=== PATIENT | male | born 1950 | race Caucasian/White ===

== ENCOUNTER → 2017-10-31 | Outpatient (CLI) | payer MEDICARE ==
[2017-10-31 14:53] LABS: Blood Urea Nitrogen 20 mg/dL (9-20)
== END | disposition home or self-care (01) ==
LOC: LABWHC1 14:23
PROVIDERS: ATTEND Physical Medicine & Rehabilitation
DX: Z01.812 Encounter for preprocedural laboratory examination (principal); N28.9 Disorder of kidney and ureter, unspecified; M79.642 Pain in left hand; R20.2 Paresthesia of skin
CPT/HCPCS: 36415; 82565; 84520

== ENCOUNTER → 2018-02-13 | Outpatient (CLI) | payer MEDICARE ==
--- NOTE | 2018-02-13 14:37 | CT ---
EXAMINATION TYPE: CT abdomen w con DATE OF EXAM: 02/13/2018 COMPARISON: NONE HISTORY: Weight loss and abnormal liver function. CT DLP: 840 mGycm Automated exposure control for dose reduction was used. TECHNIQUE: Helical acquisition of images was performed from the lung bases through the top of iliac crest to include entire abdomen. CONTRAST: Performed with Oral Contrast and with IV Contrast, patient injected with 80 mL of Isovue M300. FINDINGS: LUNG BASES: Very minimal bibasilar subsegmental atelectasis is seen at the lung bases. Partial visual ization of coronary artery calcifications are also noted. Additionally there is partial visualization of probable bilateral mild retroareolar gynecomastia. LIVER/GB: Too small to accurately characterize hepatic lesion is seen within segment 7 on series 3 im age 14 measuring 4 mm in addition to a similar 5 mm lesion in segment 8 on image 16. A third 6 mm sim ilar-appearing lesion in image 22 within segment 6. A 4 similar-appearing lesion is seen withinr the mid segment measuring 5 mm on image 28. PANCREAS: No significant abnormality is seen. No ductal dilatation. SPLEEN: No significant abnormality is seen. No splenomegaly. ADRENALS: No nodularity or thickening. KIDNEYS: 4 mm too small to accurately characterize right renal lesion is seen in series 3 image 31 an teriorly from the right midpole 6 mm right upper pole renal cyst and 1.0 cm left upper pole renal cys t are noted. BOWEL: Moderate amount retained colonic stool is noted. Bowel is nondilated. Clustered small bowel l oops are present around the central left paracentral mesentery. These are nonenlarged but demonstrate mild bowel wall thickening and may be related to infectious/inflammatory etiology or degree of nondi stention. LYMPH NODES: No greater than 1 cm short axis lymph node is seen within the abdomen. OSSEOUS STRUCTURES: Multilevel moderate degenerative changes are seen with small compression deformi ties of T12 and T11. These are age indeterminant. Multilevel Schmorl's nodes, vacuum disc phenomenon, facet arthropathy, anterior osteophytes, endplate sclerosis and intervertebral disc space narrowing are present. FREE AIR: No free air is visualized. IMPRESSION: 1. THERE ARE MULTIPLE HYPOATTENUATED HEPATIC LESIONS THAT ARE SUBCENTIMETER AND TOO SMALL TO ACCURATE LY CHARACTERIZE. THESE COULD REPRESENT HEPATIC CYSTS, HOWEVER GIVEN THEIR SMALL SIZE OF OTHER ETIOLOG IES ARE NOT EXCLUDED. ENHANCED MR COULD BE PERFORMED TO EVALUATE DEGREE OF HYPERINTENSITY ON T2-WEIGH VELMA IMAGING AND ENHANCEMENT PATTERN. 2. AGE-INDETERMINATE MILD COMPRESSION DEFORMITIES OF T11 AND T12. CORRELATE WITH POINT TENDERNESS OR ANY PRIOR IMAGING. IF THERE IS FURTHER CLINICAL CONCERN MR COULD BE PERFORMED TO EVALUATE FOR BONE MA RROW EDEMA. 3. MULTIPLE LOOPS OF CLUSTERED SMALL BOWEL WITHIN THE LEFT PARACENTRAL ABDOMEN DEMONSTRATE MILD BOWEL WALL THICKENING. THIS COULD BE RELATED TO DEGREE OF NONDISTENTION, INFECTIOUS, OR INFLAMMATORY IN ET IOLOGY.
== END | disposition home or self-care (01) ==
LOC: RADCTMAIN 12:59
PROVIDERS: ATTEND Family Medicine
DX: K76.89 Other specified diseases of liver (principal); R93.5 Abnormal findings on diagnostic imaging of other abdominal regions, including retroperitoneum; R63.4 Abnormal weight loss
CPT/HCPCS: 74160; Q9967

== ENCOUNTER 2018-04-28 09:41 | Day surgery (SDC) | payer MEDICARE ==
[2018-04-21 14:35] VITALS: BMI 20.7
[~2018-04-28 09:41] MED LIST: LACTATED RINGERS 1,000 ML IV SCH
[2018-04-28 10:36] VITALS: RESP 16; TEMP 97.9
[2018-04-28 11:25] LABS: T4, Free (Free Thyroxine) 0.77 ng/dL (0.78-2.19)
--- NOTE | 2018-04-28 11:45 | P.PCN ---
Date of Procedure: 04/28/18 Anesthesia: other (Local with lidocaine 1% and IV moderate sedation with fentanyl and Versed) Surgeon: Riya Shaffer Pathology: other (6 MLS of CSF) Condition: stable Disposition: PACU Description of Procedure: Procedure=1-lumbar puncture . Preoperative diagnoses= multiple sclerosis. Postoperative diagnosis= multiple sclerosis. Anesthesia= IV sedation with Versed and fentanyl and local lidocaine infiltration 1% 2 mL for skin and subcu infiltration. Condition= stable. Complications=none. Indication for the procedure= patient with a history of symptoms suggestive of multiple sclerosis . The patient was referred to us by his neurologist for diagnostic lumbar puncture to rule out multiple sclerosis. procedure risk and benefits and alternatives discussed with the patient and he was agreeable to proceeding with it. Description of the procedure=the patient was brought into the procedure room and placed in the sitting position , monitors applied, the back prepped with chlorhexidine , skin was localized with 1% lidocaine, then 22-gauge quickie Needle advanced slowly at L4 -5 interlaminar space to get access to the intrathecal space in 2 attempts. Cerebrospinal fluid was clear, and no heme no paresthesia, a total of 6 mL of clear cerebrospinal fluid collected in 4 different tubes, the needle removed, Band-Aid applied , patient tolerated the procedure well without any complications, and further management as per his neurologist.
[2018-04-28] MEDS ORDERED: IV FLUID CONTINUATION 1,000 ML IV ONE (11:51)
[2018-04-28 12:23] VITALS: BP 160/89; PULSE 49
[2018-04-28 13:10] LABS: Glucose,CSF 55 mg/dL (40-70); Total Protein,CSF 130 mg/dL (12-60)
[2018-04-28 13:17] LABS: Appearance,CSF Clear; CSF Tube Number 4; CSF Tube Volume 1.8; Nucleated Cells, CSF 0 u/L (0-5); Red Blood Cell, CSF Crenated 0 %; Red Blood Cell, CSF Fresh 100 %; Red Blood Cell,CSF 29 u/L (0-10)
[2018-04-28 16:50] LABS: DNA Double-Stranded NEGATIVE (NEGATIVE); RNP <0.2 AI
[2018-04-28 17:00] LABS: Rheumatoid Factor <4 IU/mL (0-13)
[2018-04-29 05:20] LABS: Angiotensin-1 Converting Enz. 28 U/L (8-52)
[2018-04-29 10:24] LABS: VDRL, Qualitative CSF Nonreactive (Nonreactive)
[2018-04-29 11:30] LABS: APTT 38 Sec(s) (<43); Dilute Russell Viper Venom 33 Sec(s) (<44)
[2018-04-29 14:04] LABS: IgG - CSF 8.6 mg/dL (0.0 - 3.4); IgG Synthesis Rate 8.58 mg/day (0.00 - 3.00); IgG/Albumin Index (CSF) 0.62 (0.00 - 0.77)
== END 2018-04-28 12:48 | disposition home or self-care (01) ==
LOC: ORPAIN 09:41
PROVIDERS: ATTEND Anesthesiology
DX: G35 Multiple sclerosis (principal); R20.2 Paresthesia of skin; I10 Essential (primary) hypertension; Z79.899 Other long term (current) drug therapy
CPT/HCPCS: 87476; 86592 ×2; 86235 ×3; 84439; 88108; 84157; 82945; 82040; 82042; 82784; 83916; 82164 ×2; 83873; 84443; 84450; 84460; 85730; 86431; 85613; 89050; 86618; 86038; 86225; 62270; J2250; J2001; J3010; 99152

== ENCOUNTER 2023-12-30 07:56 | Inpatient (IN) | payer MEDICARE ==
--- NOTE | 2023-12-30 08:15 | ED ---
General Adult HPI - General Stated complaint: cough Time Seen by Provider: 12/30/23 08:00 Source: patient, RN notes reviewed, old records reviewed - History of Present Illness Initial comments: This is a 73-year-old male who presents to the emergency department stating that he has had a cough for the last couple of days and his has pneumonia so he is worried that he might have pneumonia. Patient states he has no chest pain. Patient denies any abdominal pain. Patient denies any back pain. Patient does not know that he has a fever however he took an oral temp and it was 101.0. Patient denies any headache or numbness or weakness. Patient states he is a little bit lightheaded. Patient states she has had a coarse cough but no sputum production - Related Data Home Medications Medication Instructions Recorded Confirmed Levothyroxine Sodium [Synthroid] 50 mcg PO DAILY 04/21/18 12/30/23 Venlafaxine HCl ER [Effexor Xr] 150 mg PO HS 04/21/18 12/30/23 Capsaicin Cream [Trixaicin Cream] 1 applic TOPICAL DAILY PRN 12/30/23 12/30/23 Escitalopram [Lexapro] 20 mg PO DAILY 12/30/23 12/30/23 LORazepam 0.5 mg PO TID 12/30/23 12/30/23 Lidocaine 4% Cream [Lmx 4] 1 applic TOPICAL DAILY PRN 12/30/23 12/30/23 NIFEdipine XL [Procardia XL] 60 mg PO DAILY 12/30/23 12/30/23 Simvastatin [Zocor] 10 mg PO HS 12/30/23 12/30/23 Venlafaxine HCl ER [Effexor Xr] 75 mg PO DAILY 12/30/23 12/30/23 Allergies Allergy/AdvReac Type Severity Reaction Status Date / Time pollen extracts Allergy Dyspnea Verified 12/30/23 10:48 dust mites, pollen Allergy Mild Unknown Uncoded 12/30/23 10:48 Review of Systems ROS Statement: Those systems with pertinent positive or pertinent negative responses have been documented in the HPI. ROS Other: All systems not noted in ROS Statement are negative. Past Medical History Past Medical History: Hypertension, Prostate Disorder, Skin Disorder Additional Past Medical History / Comment(s): varicose veins, hx ulcer, eczema, enlarged prostate, floaters left eye, pain in left arm. loss of use of index finger left hand History of Any Multi-Drug Resistant Organisms: None Reported Past Surgical History: Appendectomy, Ear Surgery, Tonsillectomy Additional Past Surgical History / Comment(s): "rebuilt rt ear drum" x 4, surgery on testicle in teens(not sure what), boil above rt eye drained, colonoscopy, EGD, Past Anesthesia/Blood Transfusion Reactions: Motion Sickness Additional Past Anesthesia/Blood Transfusion Reaction / Comment(s): ether gave "band dreams" Past Psychological History: Anxiety, Depression Past Alcohol Use History: None Reported Additional Past Alcohol Use History / Comment(s): quit smoking 1971, started 1964, 1/2 PPD Past Drug Use History: None Reported - Past Family History Mother Family Medical History: Cancer, Deep Vein Thrombosis (DVT) General Exam - General Exam Comments Initial Comments: GENERAL: Patient is well-developed and well-nourished. Patient is nontoxic and well- hydrated and is in mild distress. ENT: Neck is soft and supple. No significant lymphadenopathy is noted. Oropharynx is clear. Moist mucous membranes. Neck has full range of motion without eliciting any pain. EYES: The sclera were anicteric and conjunctiva were pink and moist. Extraocular movements were intact and pupils were equal round and reactive to light. Eyelids were unremarkable. PULMONARY: Unlabored respirations. Good breath sounds bilaterally. No audible rales rhonchi or wheezing was noted. CARDIOVASCULAR: There is a regular rate and rhythm without any murmurs gallops or rubs. ABDOMEN: Soft and nontender with normal bowel sounds. SKIN: Skin is clear with no lesions or rashes and otherwise unremarkable. NEUROLOGIC: Patient is alert and oriented x3. Cranial nerves II through XII are grossly intact. Motor and sensory are also intact. Normal speech, volume and content. Symmetrical smile. MUSCULOSKELETAL: Normal extremities with adequate strength and full range of motion. LYMPHATICS: No significant lymphadenopathy is noted PSYCHIATRIC: Normal psychiatric evaluation. Course Vital Signs 12/30/23 12/30/23 12/30/23 08:02 08:21 08:44 Temperature 101.0 F H Pulse Rate 86 Respiratory 16 Rate Blood Pressure 108/68 O2 Sat by Pulse 92 L 97 Oximetry Fraction of 97 Inspired Oxygen (FIO2) 12/30/23 12/30/23 12/30/23 08:45 08:59 10:00 Temperature 100.8 F H Pulse Rate 78 81 Respiratory 16 16 16 Rate Blood Pressure 108/53 112/53 O2 Sat by Pulse 97 96 Oximetry Fraction of Inspired Oxygen (FIO2) 12/30/23 12/30/23 11:25 12:03 Temperature 97.9 F Pulse Rate 65 66 Respiratory 18 18 Rate Blood Pressure 91/60 102/60 O2 Sat by Pulse 94 L 98 Oximetry Fraction of Inspired Oxygen (FIO2) Medical Decision Making - Medical Decision Making EKG is interpreted by myself. EKG shows a sinus rhythm at 74 bpm QRS is 122 QT interval 359 QTc is 387. [place] interval is 130. Patient has septal Q waves. Patient was found to have an infiltrate on the x-ray at 11:36 AM it is still not yet been read by radiology. Was pt. sent in by a medical professional or institution (, [facility], [facility], urgent care, hospital, or correction...) When possible be specific @ -No Did you speak to anyone other than the patient for history (EMS, parent, family, police, friend...)? What history was obtained from this source @ -No Did you review nursing and triage notes (agree or disagree)? Why? @ -I reviewed and agree with nursing and triage notes Were old charts reviewed (outside hosp., previous admission, EMS record, old EKG, old radiological studies, urgent care reports/EKG's, correction records)? Report findings @ -I have reviewed prior charts and prior lab work on this patient Differential Diagnosis (chest pain, altered mental status, abdominal pain women, abdominal pain men, vaginal bleeding, weakness, fever, dyspnea, syncope, headache, dizziness, GI bleed, back pain, seizure, CVA, palpatations, mental health, musculoskeletal)? @ -Differential Dyspnea: Coronary syndrome, arrhythmia, tamponade, asthma, COPD, pulmonary embolism, pneumonia, pneumothorax, pulmonary effusion, anaphylaxis, diabetic ketoacidosis, flailed chest, pulmonary contusion, diaphragmatic rupture, anemia, neuromuscular, this is not meant to be an all-inclusive list. EKG interpreted by me (3pts min.). @ -As above X-rays interpreted by me (1pt min.). @ -Chest x-ray shows a left lower lobe pneumonia CT interpreted by me (1pt min.). @ -None done U/S interpreted by me (1pt. min.). @ -None done What testing was considered but not performed or refused? (CT, X-rays, U/S, labs)? Why? @ -None What meds were considered but not given or refused? Why? @ -None Did you discuss the management of the patient with other professionals (professionals i.e. , PA, ST[facility]ARD/[facility]ESS [facility], lab, RT, psych nurse, social media marketing analyst, locomotive electrician, teacher, evp chief exploration officer, case operator)? Give summary @ -No Was smoking cessation discussed for >3mins.? @ -No Was critical care preformed (if so, how long)? @ -No Were there social determinants of health that impacted care today? How? (Homelessness, low income, unemployed, alcoholism, drug addiction, transportation, low edu. Level, literacy, decrease access to med. care, skilled nursing, rehab)? @ -No Was there de-escalation of care discussed even if they declined (Discuss DNR or withdrawal of care, Hospice)? DNR status @ -No What co-morbidities impacted this encounter? (DM, HTN, Smoking, COPD, CAD, Cancer, CVA, ARF, Chemo, Hep., AIDS, mental health diagnosis, sleep apnea, morbid obesity)? @ -None Was patient admitted / discharged? Hospital course, mention meds given and route, prescriptions, significant lab abnormalities, going to OR and other pertinent info. @ -Patient has influenza and a left lower lobe pneumonia. Patient was given Tamiflu and antibiotics in the emergency department. Spoke with Dr. Mejia he agreed to admit the patient admit the patient wrote admitting orders Undiagnosed new problem with uncertain prognosis? @ -No Drug Therapy requiring intensive monitoring for toxicity (Heparin, Nitro, Insulin, Cardizem)? @ -No Were any procedures done? @ -No Diagnosis/symptom? @ -Pneumonia Acute, or Chronic, or Acute on Chronic? @ -Acute Uncomplicated (without systemic symptoms) or Complicated (systemic symptoms)? @ -Complicated Side effects of treatment? @ -No Exacerbation, Progression, or Severe Exacerbation? @ -No Poses a threat to life or bodily function? How? (Chest pain, [place], [place], pneumonia, PE, COPD, DKA, ARF, appy, cholecystitis, CVA, Diverticulitis, Homicidal, [place] cidal, threat to staff... and all critical care pts) @ -Yes this can lead to sepsis and endorgan dysfunction Diagnosis/symptom? @ -Influenza Acute, or Chronic, or Acute on Chronic? @ -Acute Uncomplicated (without systemic symptoms) or Complicated (systemic symptoms)? @ -Uncomplicated Side effects of treatment? @ -None Exacerbation, Progression, or Severe Exacerbation] @ -No Poses a threat to life or bodily function? @ -No - Lab Data Result diagrams: 12/30/23 08:40 12/30/23 08:40 Lab Results 12/30/23 12/30/23 12/30/23 Range/Units 08:40 08:40 08:40 WBC 11.0 H (3.8-10.6) k/uL RBC 4.49 (4.30-5.90) m/uL Hgb 13.2 (13.0-17.5) gm/dL Hct 40.8 (39.0-53.0) % MCV 90.9 (80.0-100.0) fL MCH 29.4 (25.0-35.0) pg MCHC 32.4 (31.0-37.0) g/dL RDW 13.1 (11.5-15.5) % Plt Count 181 (150-450) k/uL MPV 7.3 Neutrophils % 90 % Lymphocytes % 4 % Monocytes % 4 % Eosinophils % 1 % Basophils % 0 % Neutrophils # 9.9 H (1.3-7.7) k/uL Lymphocytes # 0.4 L (1.0-4.8) k/uL Monocytes # 0.4 (0-1.0) k/uL Eosinophils # 0.1 (0-0.7) k/uL Basophils # 0.0 (0-0.2) k/uL Sodium 139 (137-145) mmol/L Potassium 3.9 (3.5-5.1) mmol/L Chloride 101 (98-107) mmol/L Carbon Dioxide 29 (22-30) mmol/L Anion Gap 9 mmol/L BUN 23 H (9-20) mg/dL Creatinine 1.33 H (0.66-1.25) mg/dL Est GFR (CKD-EPI)AfAm 61 (>60 ml/min/1.73 sqM) Est GFR (CKD-EPI)NonAf 53 (>60 ml/min/1.73 sqM) Glucose 110 H (74-99) mg/dL Plasma Lactic Acid Librado 1.2 (0.7-2.0) mmol/L Calcium 8.8 (8.4-10.2) mg/dL Total Bilirubin 0.8 (0.2-1.3) mg/dL AST 25 (17-59) U/L ALT 20 (4-49) U/L Alkaline Phosphatase 97 (38-126) U/L Troponin I (0.000-0.034) ng/mL Total Protein 6.8 (6.3-8.2) g/dL Albumin 3.8 (3.5-5.0) g/dL Urine Color Urine Appearance (Clear) Urine pH (5.0-8.0) Ur Specific [place] (1.001-1.035) Urine Protein (Negative) Urine Glucose (UA) (Negative) Urine Ketones (Negative) Urine Blood (Negative) Urine Nitrite (Negative) Urine Bilirubin (Negative) Urine Urobilinogen (<2.0) mg/dL Ur Leukocyte Esterase (Negative) Urine RBC (0-5) /hpf Urine WBC (0-5) /hpf Ur Squamous Epith Cells (0-4) /hpf Urine Bacteria (None) /hpf Hyaline Casts (0-2) /lpf Urine Mucus (None) /hpf Influenza Type A (PCR) (Not Detectd) Influenza Type B (PCR) (Not Detectd) RSV (PCR) (Not Detectd) SARS-CoV-2 (PCR) (Not Detectd) 12/30/23 12/30/23 12/30/23 Range/Units 08:40 08:44 09:27 WBC (3.8-10.6) k/uL RBC (4.30-5.90) m/uL Hgb (13.0-17.5) gm/dL Hct (39.0-53.0) % MCV (80.0-100.0) fL MCH (25.0-35.0) pg MCHC (31.0-37.0) g/dL RDW (11.5-15.5) % Plt Count (150-450) k/uL MPV Neutrophils % % Lymphocytes % % Monocytes % % Eosinophils % % Basophils % % Neutrophils # (1.3-7.7) k/uL Lymphocytes # (1.0-4.8) k/uL Monocytes # (0-1.0) k/uL Eosinophils # (0-0.7) k/uL Basophils # (0-0.2) k/uL Sodium (137-145) mmol/L Potassium (3.5-5.1) mmol/L Chloride (98-107) mmol/L Carbon Dioxide (22-30) mmol/L Anion Gap mmol/L BUN (9-20) mg/dL Creatinine (0.66-1.25) mg/dL Est GFR (CKD-EPI)AfAm (>60 ml/min/1.73 sqM) Est GFR (CKD-EPI)NonAf (>60 ml/min/1.73 sqM) Glucose (74-99) mg/dL Plasma Lactic Acid Librado (0.7-2.0) mmol/L Calcium (8.4-10.2) mg/dL Total Bilirubin (0.2-1.3) mg/dL AST (17-59) U/L ALT (4-49) U/L Alkaline Phosphatase (38-126) U/L Troponin I 0.019 (0.000-0.034) ng/mL Total Protein (6.3-8.2) g/dL Albumin (3.5-5.0) g/dL Urine Color Light Yellow Urine Appearance Clear (Clear) Urine pH 6.0 (5.0-8.0) Ur Specific [place] 1.014 (1.001-1.035) Urine Protein 1+ H (Negative) Urine Glucose (UA) Negative (Negative) Urine Ketones Negative (Negative) Urine Blood Moderate H (Negative) Urine Nitrite Negative (Negative) Urine Bilirubin Negative (Negative) Urine Urobilinogen <2.0 (<2.0) mg/dL Ur Leukocyte Esterase Trace H (Negative) Urine RBC 39 H (0-5) /hpf Urine WBC 5 (0-5) /hpf Ur Squamous Epith Cells 1 (0-4) /hpf Urine Bacteria Few H (None) /hpf Hyaline Casts 1 (0-2) /lpf Urine Mucus Rare H (None) /hpf Influenza Type A (PCR) Detected A (Not Detectd) Influenza Type B (PCR) Not Detected (Not Detectd) RSV (PCR) Not Detected (Not Detectd) SARS-CoV-2 (PCR) Not Detected (Not Detectd) Disposition Clinical Impression: Pneumonia, Influenza Disposition: ADMITTED IP TO THIS HOSP Referrals: Will Villanueva MD [Primary Care Provider] - 1-2 days Time of Disposition: 12:36
[2023-12-30] MEDS: IBUPROFEN 600 MG TAB PO STA (08:34)
[2023-12-30] MEDS: ACETAMINOPHEN TAB 500 MG TAB PO STA (08:36)
[2023-12-30] MEDS: SODIUM CHLORIDE 0.9% 500 ML 500 ML IV SCH (08:37)
[2023-12-30 08:50] LABS: Basophils % (A) 0 %; Eosinophils # (A) 0.1 k/uL (0-0.7); Eosinophils % (A) 1 %; HCT 40.8 % (39.0-53.0); HGB 13.2 gm/dL (13.0-17.5); Lymphocytes # (A) 0.4 k/uL (1.0-4.8); Lymphocytes % (A) 4 %; MCH 29.4 pg (25.0-35.0); MCHC 32.4 g/dL (31.0-37.0); MCV 90.9 fL (80.0-100.0); Mean Platelet Volume 7.3; Monocytes # (A) 0.4 k/uL (0-1.0); Monocytes % (A) 4 %; Neutrophils # (A) 9.9 k/uL (1.3-7.7); Neutrophils % (A) 90 %; Platelet Count 181 k/uL (150-450); RBC 4.49 m/uL (4.30-5.90); RDW 13.1 % (11.5-15.5)
[2023-12-30 09:18] LABS: ALT 20 U/L (4-49); AST 25 U/L (17-59); African American GFR (CKD) 61 (>60 ml/min/1.73 sqM); Albumin 3.8 g/dL (3.5-5.0); Alkaline Phosphatase 97 U/L (38-126); Anion Gap 9 mmol/L; Blood Urea Nitrogen 23 mg/dL (9-20); Calcium 8.8 mg/dL (8.4-10.2); Carbon Dioxide 29 mmol/L (22-30); Chloride 101 mmol/L (98-107); Glucose 110 mg/dL (74-99); Non-African American GFR(CKD) 53 (>60 ml/min/1.73 sqM); Potassium 3.9 mmol/L (3.5-5.1); Sodium 139 mmol/L (137-145); Total Bilirubin 0.8 mg/dL (0.2-1.3); Total Protein 6.8 g/dL (6.3-8.2)
[2023-12-30 10:07] LABS: Appearance,Urine Clear (Clear); Bacteria,Urine Few /hpf; Bilirubin,Urine Negative (Negative); Blood,Urine Moderate (Negative); Color,Urine Light Yellow; Glucose,Urine (UA) Negative (Negative); Hyaline Casts,Urine 1 /lpf (0-2); Ketones,Urine Negative (Negative); Leukocyte Esterase,Urine Trace (Negative); Mucus,Urine Rare /hpf; Nitrite,Urine Negative (Negative); Protein,Urine 1+ (Negative); RBC,Urine 39 /hpf (0-5); Specific Gravity,Urine 1.014 (1.001-1.035); Squamous Epithelial Cell,Urine 1 /hpf (0-4); Urobilinogen,Urine <2.0 mg/dL (<2.0); WBC,Urine 5 /hpf (0-5)
[2023-12-30] MEDS: LORazepam 0.5 MG TAB PO ONE (11:27)
[2023-12-30] MEDS: OSELTAMIVIR 75 MG CAP PO STA (11:27)
[2023-12-30] MEDS: cefTRIAXone IN SWFI 1,000 MG/10 ML SYRINGE IVP STA (12:00)
--- NOTE | 2023-12-30 12:12 | XR ---
EXAMINATION TYPE: XR chest 2V DATE OF EXAM: 12/30/2023 COMPARISON: None INDICATION: Fever TECHNIQUE: Frontal and lateral views of the chest are obtained. FINDINGS: The heart size is normal. The pulmonary vasculature is normal. There is a left lower lobe infiltrate. Correlate for pneumonia. Atelectasis should be considered. Rem aining portions of the lungs appear clear. IMPRESSION: 1. Left lower lobe infiltrate. Correlate for pneumonia.
[2023-12-30] MEDS ORDERED: PNEUMONIA PROTOCOL UTILIZED 1 EACH MISC PO PRN (12:37)
[2023-12-30] MEDS: AZITHROMYCIN 500 MG in SODIUM CHLORIDE 0.9% 250 ML IVPB STA (13:40)
[2023-12-30] MEDS: PANTOPRAZOLE 40 MG TABLET PO SCH (13:40)
--- NOTE | 2023-12-30 13:41 | HP ---
HISTORY AND PHYSICAL CHIEF COMPLAINT: Cough and fever. HISTORY OF PRESENT ILLNESS: This is a 73-year-old gentleman with a past medical history of hypertension, varicose veins, and other medical issues, was complaining of fever and cough for the last couple of days. The patient's fever paula up to 101. The patient came to [facility] and was found to have influenza A positive. The chest x-ray was done, which I reviewed personally, showed left lower lobe infiltrate and possibly pneumonia. The patient admitted for further evaluation and treatment. There is no history of any headache, loss of conscious, or seizures at this time. PAST MEDICAL HISTORY: Reviewed include hypertension, rest of the history and rest of the chart is also reviewed. HOME MEDICATIONS: Reviewed include diuretic. Rest of the medications noted. ALLERGIES: Pollen extracts. FAMILY HISTORY: History of DVT in the family. SOCIAL HISTORY: No history of smoking or alcohol. REVIEW OF SYSTEMS: Fourteen-point review is negative except as mentioned earlier. PHYSICAL EXAMINATION: VITAL SIGNS: Pulse is 65, blood pressure 91/60, respirations 18, temperature is 100.8. HEENT: Conjunctivae normal. NECK: No JVD. CARDIOVASCULAR: S1, S2 muffled. RESPIRATIONS: Few scattered rhonchi and crackles. ABDOMEN: Soft. NERVOUS SYSTEM: No focal deficits. SKIN: No ulcer, rash, bleeding. JOINTS: No active deforming arthropathy. LABORATORY DATA: WBC 7. Other labs are noted. Chest x-ray reviewed personally. ASSESSMENT: 1. Acute influenza A with left lower lobe pneumonia, possibly flu pneumonia. 2. Hypertension. 3. History of prostate disorder. 4. Appendectomy. 5. Multiple medical issues. 6. Anxiety, depression. RECOMMENDATIONS AND DISCUSSION: This is a 73-year-old woman, who presented with multiple complex medical issues, we will monitor the patient closely. I would recommend to continue current medications. I would recommend a procalcitonin. We will start empiric antibiotics, obtain the cultures. Infectious Disease and Pulmonary consultations. Bronchodilators. Resume home medications. DVT prophylaxis. Prognosis guarded because of multiple complex medical issues. This patient will require definitely more than 2 nights stay to evaluate and treat the above-mentioned multiple medical issues. Discussed with the patient. Further recommendations to follow. MMODL / IJN: [id number] /
[2023-12-30] MEDS: HEPARIN SODIUM,PORCINE 5,000 UNIT/ML 1 ML VIAL SQ SCH (16:26)
[2023-12-30] MEDS: LORazepam 0.5 MG TAB PO SCH (16:26)
[2023-12-30] MEDS: ATORVASTATIN 10 MG TAB PO SCH (22:00)
[2023-12-30] MEDS: VENLAFAXINE HCL ER 150 MG CAP PO SCH (22:00)
[2023-12-30] MEDS: OSELTAMIVIR 30 MG CAP PO SCH (22:29)
[2023-12-30 22:30] VITALS: TEMP 98
--- NOTE | 2023-12-30 23:50 | P.CONS ---
History of Present Illness - Reason for Consult Consult date: 12/30/23 Pneumonia Requesting physician: Shen Mayes - Chief Complaint Shortness of breath and cough x few days - History of Present Illness Patient is a 73-year-old male past medical history significant for hypertension eczema BPH presenting to the hospital for evaluation of cough and shortness of breath and this patient symptom has been going on for the last few days before presentation to the hospital patient denies significant headache or URI symptoms has been complaining of cough moderate intensity with occasional sputum production no hemoptysis no pleuritic chest pain denies any nausea no vomiting no choking on the food no abdominal pain or any diarrhea patient on presentation to the hospital did have a fever of 101 F patient was not tachycardic or hypotensive he was hypoxic with O2 sats of 92% currently on 2 L nasal cannula oxygen patient did have white count of 11,000 with a left shift BUN/creatinine has been mildly elevated urine is negative patient tested positive for influenza COVID and RSV negative patient did have a chest x-ray left lower lobe infiltrate correlate for pneumonia patient was admitted to hospital started on Rocephin and Zithromax Tamiflu infectious disease was consulted for further management of antibiotic therapy Review of Systems Positive point and negatives has been mentioned in the HPI, complete review of systems was performed and all other systems are negative Past Medical History Past Medical History: Hypertension, Prostate Disorder, Skin Disorder Additional Past Medical History / Comment(s): varicose veins, hx ulcer, eczema, enlarged prostate, floaters left eye, pain in left arm. loss of use of index finger left hand History of Any Multi-Drug Resistant Organisms: None Reported Past Surgical History: Appendectomy, Ear Surgery, Tonsillectomy Additional Past Surgical History / Comment(s): "rebuilt rt ear drum" x 4, surgery on testicle in teens(not sure what), boil above rt eye drained, colonoscopy, EGD, Past Anesthesia/Blood Transfusion Reactions: Motion Sickness Additional Past Anesthesia/Blood Transfusion Reaction / Comm: ether gave "band dreams" Past Psychological History: Anxiety, Depression Past Alcohol Use History: None Reported Additional Past Alcohol Use History / Comment(s): quit smoking 1971, started 1964, 1/2 PPD Past Drug Use History: None Reported - Past Family History Mother Family Medical History: Cancer, Deep Vein Thrombosis (DVT) Medications and Allergies Home Medications Medication Instructions Recorded Confirmed Type Levothyroxine Sodium [Synthroid] 50 mcg PO DAILY 04/21/18 12/30/23 History Venlafaxine HCl ER [Effexor XR] 150 mg PO HS 04/21/18 12/30/23 History Capsaicin Cream [Trixaicin Cream] 1 applic TOPICAL DAILY PRN 12/30/23 12/30/23 History Escitalopram [Lexapro] 20 mg PO DAILY 12/30/23 12/30/23 History LORazepam 0.5 mg PO TID 12/30/23 12/30/23 History Lidocaine 4% Cream [Lmx 4] 1 applic TOPICAL DAILY PRN 12/30/23 12/30/23 History NIFEdipine XL [Procardia XL] 60 mg PO DAILY 12/30/23 12/30/23 History Simvastatin [Zocor] 10 mg PO HS 12/30/23 12/30/23 History Venlafaxine HCl ER [Effexor XR] 75 mg PO DAILY 12/30/23 12/30/23 History Oseltamivir [Tamiflu] 30 mg PO Q12HR 4 Days #8 cap 12/31/23 Rx cefUROXime axetiL [Ceftin] 500 mg PO BID 5 Days #10 tab 12/31/23 Rx Allergies Allergy/AdvReac Type Severity Reaction Status Date / Time pollen extracts Allergy Dyspnea Verified 12/30/23 10:48 dust mites, pollen Allergy Mild Unknown Uncoded 12/30/23 10:48 Physical Exam Vitals: Vital Signs Temp Pulse Resp BP Pulse Ox FiO2 12/30/23 15:00 81 18 108/62 94 L 12/30/23 14:00 91 19 122/54 95 12/30/23 13:35 97.0 F L 59 L 18 104/60 99 12/30/23 12:03 66 18 102/60 98 12/30/23 11:25 97.9 F 65 18 91/60 94 L 12/30/23 10:00 100.8 F H 81 16 112/53 96 12/30/23 08:59 78 16 108/53 97 12/30/23 08:45 16 12/30/23 08:44 97 12/30/23 08:21 97 12/30/23 08:02 101.0 F H 86 16 108/68 92 L Intake and Output 12/30/23 12/30/23 12/30/23 06:59 14:59 22:59 Output Total 80 Balance -80 Output: Urine 80 Straight 80 Other: Weight 70.307 kg GENERAL DESCRIPTION: Elderly male lying in bed, no distress. No tachypnea or accessory muscle of respiration use. HEENT: Shows Pallor , no scleral icterus. Oral mucous membrane is dry. No pharyngeal erythema or thrush NECK: Trachea central, no thyromegaly. LUNGS: Unlabored breathing. Decreased breath sound the base no wheeze HEART: S1, S2, regular rate and rhythm. No loud murmur ABDOMEN: Soft, no tenderness , guarding or rigidity, EXTREMITIES: No edema of feet. SKIN: No rash, no masses palpable. NEUROLOGICAL: The patient is awake, alert, oriented x3, mood and affect normal. Results CBC & Chem 7: 12/31/23 04:40 12/31/23 04:40 Labs: Abnormal Lab Results - Last 24 Hours (Table) 12/30/23 12/30/23 12/30/23 Range/Units 08:40 08:40 08:40 WBC 11.0 H (3.8-10.6) k/uL Neutrophils # 9.9 H (1.3-7.7) k/uL Lymphocytes # 0.4 L (1.0-4.8) k/uL BUN 23 H (9-20) mg/dL Creatinine 1.33 H (0.66-1.25) mg/dL Glucose 110 H (74-99) mg/dL C-Reactive Protein (<1.0) mg/dL Urine Protein (Negative) Urine Blood (Negative) Ur Leukocyte Esterase (Negative) Urine RBC (0-5) /hpf Urine Bacteria (None) /hpf Urine Mucus (None) /hpf Influenza Type A (PCR) Detected A (Not Detectd) 12/30/23 12/30/23 Range/Units 09:27 14:24 WBC (3.8-10.6) k/uL Neutrophils # (1.3-7.7) k/uL Lymphocytes # (1.0-4.8) k/uL BUN (9-20) mg/dL Creatinine (0.66-1.25) mg/dL Glucose (74-99) mg/dL C-Reactive Protein 5.8 H (<1.0) mg/dL Urine Protein 1+ H (Negative) Urine Blood Moderate H (Negative) Ur Leukocyte Esterase Trace H (Negative) Urine RBC 39 H (0-5) /hpf Urine Bacteria Few H (None) /hpf Urine Mucus Rare H (None) /hpf Influenza Type A (PCR) (Not Detectd) Assessment and Plan (1) Influenza Status: Acute Code(s): J11.1 - FLU DUE TO UNIDENTIFIED INFLUENZA VIRUS W OTH RESP MANIFEST SNOMED Code(s): 9751008 (2) Pneumonia Status: Acute Code(s): J18.9 - PNEUMONIA, UNSPECIFIED ORGANISM SNOMED Code(s): 224380655 (3) Sepsis Status: Acute Code(s): A41.9 - SEPSIS, UNSPECIFIED ORGANISM SNOMED Code(s): 22419532 Plan: 1patient presented to hospital with sepsis in this patient noted to have fever elevated white count source likely left lower lobe pneumonia in this patient al so tested positive for influenza A concerning for possible secondary bacterial pneumonia 2-try to obtain a sputum for Gram stain culture check a CRP and a procalcitonin level 3-5-day course of Tamiflu dose adjusted to the kidney function by pharmacy 4-Rocephin and Zithromax while waiting for the culture to finalize We will follow on clinical condition and cultures to further adjust medication if needed Thank you for this consultation we will follow the patient along with you Dictation was produced using [employer] dictation software. please excuse any grammatical, word or spelling errors. Time with Patient: Greater than 30
--- NOTE | 2023-12-31 04:51 | P.CNPUL ---
History of Present Illness Consult date: 12/31/23 Requesting physician: Denis Ward Reason for consult: pneumonia Chief complaint: Shortness of breath, cough, weakness x 2 days History of present illness: Patient is a 73-year-old white male with past medical history significant for hypertension, hyperlipidemia, hypothyroidism, anxiety/depression. His primary care provider is Dr. Jacek Villanueva. He presented to the emergency room yesterday morning complaining mostly of progressively worsening shortness of breath, mostly nonproductive congested cough, and generalized weakness. Denies chest pain. He was febrile on arrival with a Tmax of 101 F. He also tested positive for influenza A. Chest x-ray shows a left lower lobe infiltrate concerning for possible superimposed bacterial pneumonia. Procalcitonin level was elevated at 4.4. He has been started on antibiotics in the form of azithromycin and Rocephin, per infectious disease. Patient also undergoing a 5-day course of Tamiflu twice daily. CBC on arrival: WBC count 11, hemoglobin 13.22, hematocrit 40.8, platelets 181. BMP on arrival: Sodium 139, potassium 3.9, chloride 101, serum bicarb 29, BUN 23, creatinine 1.33, glucose 110. Troponin 0.019. Patient is currently sitting up in bed, on room air, in no acute distress. Appears nontoxic. Vital signs are stable. Review of Systems REVIEW OF SYSTEMS: CONSTITUTIONAL: Denies any recent significant weight loss or weight gain. Admits generalized weakness and malaise. Admits myalgias. EYES: Denies change in vision. EARS, NOSE, MOUTH, THROAT: Denies headaches. Admits clear rhinorrhea and sore throat. CARDIOVASCULAR: Denies chest pain, palpitations or syncopal episodes. RESPIRATORY: See HPI. GASTROINTESTINAL: Denies change in appetite, abdominal pain, nausea and vomiting, or diarrhea GENITOURINARY: Denies hematuria, denies infections. MUSKULOSKELETAL: Denies pain, denies swelling. INTEGUMENTARY: Denies rash, denies eczema. NEUROLOGICAL: Denies recent memory loss, no recent seizure activity. PSYCHIATRIC: Denies anxiety, denies depression. HEMATOLOGIC/LYMPHATIC: Denies anemia, denies enlarged lymph node Past Medical History Past Medical History: Hypertension, Prostate Disorder, Skin Disorder Additional Past Medical History / Comment(s): varicose veins, hx ulcer, eczema, enlarged prostate, floaters left eye, pain in left arm. loss of use of index finger left hand History of Any Multi-Drug Resistant Organisms: None Reported Past Surgical History: Appendectomy, Ear Surgery, Tonsillectomy Additional Past Surgical History / Comment(s): "rebuilt rt ear drum" x 4, surgery on testicle in teens(not sure what), boil above rt eye drained, colonoscopy, EGD, Past Anesthesia/Blood Transfusion Reactions: Motion Sickness Additional Past Anesthesia/Blood Transfusion Reaction / Comment(s): ether gave "band dreams" Past Psychological History: Anxiety, Depression Past Alcohol Use History: None Reported Additional Past Alcohol Use History / Comment(s): quit smoking 1971, started 1964, 1/2 PPD Past Drug Use History: None Reported - Past Family History Mother Family Medical History: Cancer, Deep Vein Thrombosis (DVT) Medications and Allergies Home Medications Medication Instructions Recorded Confirmed Type Levothyroxine Sodium [Synthroid] 50 mcg PO DAILY 04/21/18 12/30/23 History Venlafaxine HCl ER [Effexor Xr] 150 mg PO HS 04/21/18 12/30/23 History Capsaicin Cream [Trixaicin Cream] 1 applic TOPICAL DAILY PRN 12/30/23 12/30/23 History Escitalopram [Lexapro] 20 mg PO DAILY 12/30/23 12/30/23 History LORazepam 0.5 mg PO TID 12/30/23 12/30/23 History Lidocaine 4% Cream [Lmx 4] 1 applic TOPICAL DAILY PRN 12/30/23 12/30/23 History NIFEdipine XL [Procardia XL] 60 mg PO DAILY 12/30/23 12/30/23 History Simvastatin [Zocor] 10 mg PO HS 12/30/23 12/30/23 History Venlafaxine HCl ER [Effexor Xr] 75 mg PO DAILY 12/30/23 12/30/23 History Allergies Allergy/AdvReac Type Severity Reaction Status Date / Time pollen extracts Allergy Dyspnea Verified 12/30/23 10:48 dust mites, pollen Allergy Mild Unknown Uncoded 12/30/23 10:48 Physical Exam Vitals: Vital Signs Temp Pulse Pulse Resp BP BP Pulse Ox 12/30/23 19:37 98.0 F 62 15 101/59 95 12/30/23 16:54 97.7 F 59 L 18 94 L 12/30/23 16:20 62 16 102/64 94 L 12/30/23 15:00 81 18 108/62 94 L 12/30/23 14:00 91 19 122/54 95 12/30/23 13:35 97.0 F L 59 L 18 104/60 99 12/30/23 12:03 66 18 102/60 98 12/30/23 11:25 97.9 F 65 18 91/60 94 L 12/30/23 10:00 100.8 F H 81 16 112/53 96 12/30/23 08:59 78 16 108/53 97 12/30/23 08:45 16 12/30/23 08:44 12/30/23 08:21 97 12/30/23 08:02 101.0 F H 86 16 108/68 92 L FiO2 12/30/23 19:37 12/30/23 16:54 12/30/23 16:20 12/30/23 15:00 12/30/23 14:00 12/30/23 13:35 12/30/23 12:03 12/30/23 11:25 12/30/23 10:00 12/30/23 08:59 12/30/23 08:45 12/30/23 08:44 97 12/30/23 08:21 12/30/23 08:02 Intake and Output 12/30/23 12/30/23 12/31/23 14:59 22:59 06:59 Output Total 80 Balance -80 Output: Urine 80 Straight 80 Other: # Voids 0 Weight 70.307 kg 70.307 kg GENERAL EXAM: Alert, 73-year-old white male, appearing stated age, nontoxic appearance, comfortable in no apparent distress. HEAD: Normocephalic and atraumatic EYES: Normal reaction of pupils, equal size. NOSE: Clear with pink turbinates. THROAT: Pharyngeal erythema, no exudates. Dry mucous membranes. NECK: No masses, no JVD. CHEST: No chest wall deformity. LUNGS: Equal air entry with scattered rhonchi. No crackles or focal dullness. On room air. No conversational dyspnea or accessory muscle use.. CVS: S1 and S2 normal with no audible murmur, regular rhythm. No extra heart sounds ABDOMEN: No hepatosplenomegaly, active bowel sounds, no guarding or rigidity. SPINE: No scoliosis or deformity SKIN: No rashes CENTRAL NERVOUS SYSTEM: No focal deficits, tone is normal in all 4 extremities. EXTREMITIES: There is no peripheral edema, clubbing, or cyanosis. Peripheral pulses are intact. Results - Laboratory Findings CBC and BMP: 12/30/23 08:40 12/30/23 08:40 PT/INR, D-dimer D-Dimer 0.43 mg/L FEU (<0.60) 12/30/23 14:24 Abnormal lab findings: Abnormal Labs 12/30/23 12/30/23 12/30/23 08:40 08:40 08:40 WBC 11.0 H Neutrophils # 9.9 H Lymphocytes # 0.4 L BUN 23 H Creatinine 1.33 H Glucose 110 H C-Reactive Protein Procalcitonin Urine Protein Urine Blood Ur Leukocyte Esterase Urine RBC Urine Bacteria Urine Mucus Influenza Type A (PCR) Detected A 12/30/23 12/30/23 12/30/23 09:27 14:24 14:24 WBC Neutrophils # Lymphocytes # BUN Creatinine Glucose C-Reactive Protein 5.8 H Procalcitonin 4.41 H Urine Protein 1+ H Urine Blood Moderate H Ur Leukocyte Esterase Trace H Urine RBC 39 H Urine Bacteria Few H Urine Mucus Rare H Influenza Type A (PCR) - Diagnostic Findings Chest x-ray: image reviewed Assessment and Plan Assessment: Acute influenza A infection, with possible left lower lobe bacterial superinfection. Chest x-ray shows a left lower lobe infiltrate. Procalcitonin elevated at 4.41. Acute dyspnea, secondary to above Acute kidney injury, likely related to poor oral intake and severe dehydration History of hypertension History of hyperlipidemia History of hypothyroidism History of BPH History of anxiety and depression Lifetime non-smoker Plan: Patient's medications, labs, chest x-ray reviewed Continue empiric antibiotics, which are being managed by infectious disease. Repeat chest x-ray in the morning Continue course of Tamiflu for 5 days twice daily Blood cultures are pending. Obtain sputum culture if possible. Procalcitonin level elevated at 4.41. Continue supportive care Start the patient on some IV maintenance fluids We will continue to follow I have personally seen and examined the patient, performed the documentation and the assessment and plan as written. Number of minutes spent on the visit:20 Time with Patient: Greater than 30
[2023-12-31] MEDS: SODIUM CHLORIDE 0.9% 1,000 ML IV SCH (06:23)
[2023-12-31] MEDS: ESCITALOPRAM 20 MG TAB PO SCH (08:00)
[2023-12-31] MEDS: VENLAFAXINE HCL ER 75 MG CAP PO SCH (08:00)
[2023-12-31] MEDS: LEVOTHYROXINE 50 MCG TAB PO SCH (08:00)
[2023-12-31] MEDS: AZITHROMYCIN 500 MG TAB PO SCH (08:01)
--- NOTE | 2023-12-31 08:03 | XR ---
EXAMINATION TYPE: XR chest 2V DATE OF EXAM: 12/31/2023 COMPARISON: 12/30/2023 HISTORY: Shortness of breath TECHNIQUE: Frontal and lateral views of the chest are obtained. FINDINGS: Scattered senescent parenchymal changes noted. Hyperinflation compatible with COPD. Left lower lobe infiltrate with improving aeration. Heart size is stable. Mediastinal structures are stable and grossly unremarkable. No evidence for hilar prominence. Degenerative changes dorsal spine. IMPRESSION: 1. Left lower lobe infiltrate with improving aeration.
[2023-12-31 08:17] LABS: Basophils # (A) 0.02 X 10*3/uL (0.00-0.10); Basophils % (A) 0.2 %; Eosinophils # (A) 0.07 X 10*3/uL (0.04-0.35); Eosinophils % (A) 0.6 %; HCT 34.9 % (39.6-50.0); HGB 11.1 g/dL (13.0-17.0); Lymphocytes # (A) 0.84 X 10*3/uL (0.90-5.00); Lymphocytes % (A) 6.9 %; MCH 29.3 pg (27.0-32.0); MCHC 31.8 g/dL (32.0-37.0); MCV 92.1 FL (80.0-97.0); Mean Platelet Volume 9.9 FL (9.5-12.2); Monocytes # (A) 0.57 X 10*3/uL (0.20-1.00); Monocytes % (A) 4.7 %; NRBC Per 100 WBC 0 X 10*3/uL (0.00-0.01); Neutrophils # (A) 10.58 X 10*3/uL (1.80-7.70); Neutrophils % (A) 86.9 %; Platelet Count 168 X 10*3/uL (140-440); RBC 3.79 X 10*6/uL (4.40-5.60); RDW 13.3 % (11.5-14.5); WBC 12.16 X 10*3/uL (4.50-10.00)
[2023-12-31 08:33] LABS: BUN/Creat Ratio 17.64 Ratio (12.00-20.00); Blood Urea Nitrogen 24.7 mg/dL (9.0-27.0); Calcium 8.5 mg/dL (8.7-10.3); Carbon Dioxide 29.7 mmol/L (21.6-31.8); Chloride 101 mmol/L (96-109); Glucose 81 mg/dL (70-110); Potassium 3.3 mmol/L (3.5-5.5); Sodium 140 mmol/L (135-145)
[2023-12-31 08:42] VITALS: RESP 16
[2023-12-31] MEDS ORDERED: Potassium Replacement Protocol 1 EACH MISC MISCELLANE PRN (10:10)
[2023-12-31] MEDS: POTASSIUM CHLORIDE ER 20 MEQ TAB.ER PO SCH (11:44)
--- NOTE | 2023-12-31 15:28 | P.PN ---
Subjective Progress Note Date: 12/31/23 Principal diagnosis: Reason for follow-up is influenza A and pneumonia Patient is a 73-year-old male past medical history significant for hypertension eczema BPH presenting to the hospital for evaluation of cough and shortness of breath, patient was febrile hypoxic and has been diagnosed with influenza and concern for possible left lower lobe pneumonia. On today's evaluation that is 12/31/2023, Patient did have resolution of his fever and is afebrile this morning patient is currently on room air and denies having any shortness of breath, the patient denies any chest pain or worsening cough, the patient denies any nausea vomiting did not have any abdominal pain and no diarrhea. Patient white count is 12.16, creatinine is 1.4 procalcitonin is 4.41 sputum not collected Objective - Vital Signs Vital signs: Vital Signs Temp 98.0 F 12/31/23 14:30 Pulse 64 12/31/23 14:30 Resp 16 12/31/23 14:30 BP 123/70 12/31/23 14:30 Pulse Ox 95 12/31/23 14:30 FiO2 97 12/30/23 08:44 Intake & Output 12/30/23 12/31/23 12/31/23 18:59 06:59 18:59 Intake Total 200 Output Total 80 800 400 Balance -80 -800 -200 Weight 70.307 kg Intake: Oral 200 Output: Urine 80 800 400 Straight 80 Other: # Voids 0 # Bowel Movements 2 - Exam GENERAL DESCRIPTION: An elderly male lying in bed in no distress RESPIRATORY SYSTEM: Unlabored breathing , decreased breath sounds at bases HEART: S1 S2 regular rate and rhythm , ABDOMEN: Soft , no tenderness EXTREMITIES: No edema feet - Labs CBC & Chem 7: 12/31/23 04:40 12/31/23 04:40 Labs: Abnormal Lab Results - Last 24 Hours (Table) 12/30/23 12/31/23 12/31/23 Range/Units 14:24 04:40 04:40 WBC 12.16 H (4.50-10.00) X 10*3/uL RBC 3.79 L (4.40-5.60) X 10*6/uL Hgb 11.1 L (13.0-17.0) g/dL Hct 34.9 L (39.6-50.0) % MCHC 31.8 L (32.0-37.0) g/dL Immature Gran # 0.08 H (0.00-0.04) X 10*3/uL Neutrophils # 10.58 H (1.80-7.70) X 10*3/uL Lymphocytes # 0.84 L (0.90-5.00) X 10*3/uL Potassium 3.3 L (3.5-5.5) mmol/L Est GFR (CKD-EPI) 53 L (>=60) Calcium 8.5 L (8.7-10.3) mg/dL Procalcitonin 4.41 H (0.02-0.09) ng/mL Assessment and Plan (1) Influenza Current Visit: Yes Status: Acute Code(s): J11.1 - FLU DUE TO UNIDENTIFIED INFLUENZA VIRUS W OTH RESP MANIFEST SNOMED Code(s): 3714980 (2) Pneumonia Current Visit: Yes Status: Acute Code(s): J18.9 - PNEUMONIA, UNSPECIFIED ORGANISM SNOMED Code(s): 135425442 Plan: 1patient presented to hospital with sepsis in this patient noted to have fever elevated white count source likely left lower lobe pneumonia in this patient also tested positive for influenza A concerning for possible secondary bacterial pneumonia 2-try to obtain a sputum for Gram stain culture patient did have elevated procalcitonin level of 4.41 3- patient to continue with the Tamiflu to finish a 5-day course of therapy 4-we will keep the patient on Rocephin and Zithromax while waiting for the culture to finalize Family at the bedside questions answered Dictation was produced using [employer] dictation software. please excuse any grammatical, word or spelling errors. Time with Patient: Less than 30
[2023-12-31 15:47] VITALS: BP 123/70; PULSE 64
--- NOTE | 2024-01-02 07:41 | CDI ---
Documentation Clarification Form Date: 01/02/2024 07:29:32 AM From: Macy Sanchez Admit Date: 12/30/2023 12:37:00 PM Patient Name: Wes Hernandez Visit Number: [id number] Discharge Date: 12/31/2023 04:28:00 PM ATTENTION: The Clinical Documentation Specialists (CDI) and [facility] Coding Staff appreciate your assistance in clarifying documentation. Please respond to the clarification below the line at the bottom and electronically sign. The CDI & [facility] Coding staff will review the response and follow-up if needed. Please note: Queries are made part of the Legal Health Record. If you have any questions, please contact the author of this message via ITS. Dr. Shen Mayes Per ID [id number] conult Sepsis is documented in Assessment and Plan. Based on this information and the findings below, is there an additional diagnosis that is clinically appropriate for this patient? History/Risk Factors: Bacterial pneumonia, Influenza A Clinical Indicators: WBC 11.0 Lactic acid: 1.2 Blood cultures: No growth Vitals signs: 101.0 F, 86 bpm, 108/68, 92% RA, Treatment: Tamiflu and IV antibiotics ID Consult: Sepsis Antibiotics: Zithromax and Rocephin Is there an additional diagnosis that is clinically appropriate for this patient? [ x] Sepsis, present on admission, secondary to influenza A [ ] Sepsis, developed during stay, not present on admission [ ] Severe Sepsis with organ failure [ ] Septic Shock [ ] SIRS, without underlying infectious process [ ] No additional diagnosis/not clinically significant [ ] Other, please specify [ ] Unable to determine SIRS Criteria: 2 or more of the following may indicate SIRS Temperature < 96.8F (36C) or > 101.0F (38.3C) Heart Rate > 90 bpm Respiratory Rate > 20 breaths/min or PaCO2 < 32 mmHg White Blood Cell Count > 12,000 or < 4,000 cells/mm3 or > 10% bands VONNIED
--- NOTE | 2024-01-03 06:24 | P.DS ---
Providers Date of admission: 12/30/23 12:37 Expected date of discharge: 12/31/23 Attending physician: Joni Aguilera MD Consults: 12/30/23 13:16 Consult Physician Routine Consulting Provider: Jaskaran Linares Consult Reason/Comments: pneumonia?? Do you want consulting provider notified?: Yes Consult Physician Routine Consulting Provider: Ryan Hines Consult Reason/Comments: pneumonia Do you want consulting provider notified?: Yes Primary care physician: Will Villanueva Hospital Course: Final diagnosis Acute influenza A with left lower lobe pneumonia with features of sepsis, present on admission Acute hypoxic respiratory failure secondary to above, improved on room air Hypertension Elevated procalcitonin secondary to assessment #1 History of prostate disorder and straight caths outpatient History of anxiety, depression Moderate protein calorie malnutrition with a BMI of 22.2 GI prophylaxis DVT prophylaxis Full code Discharge disposition Patient is being discharged in a stable condition with guarded prognosis to home. Patient will follow-up with Dr. Will Villanueva in the outpatient setting upon discharge. Patient is to continue with oral Ceftin along with completing the Tamiflu course and outpatient follow-up with pulmonary as scheduled. Total time taken is greater than 35 minutes. Hospital course This is a 73-year-old male who was recently admitted with generalized weakness and bodyaches respiratory failure and concerns for left lower lobe pneumonia and features of sepsis present on admission. Patient was found to have acute influenza A and requiring some oxygen initially. Patient has titrated to room air and denies shortness of breath. Patient reports feeling tired but would like to go home. Patient being evaluated by infectious disease along with pulmonary and would recommend close outpatient follow-up. Patient is adamant about going home and will be discharged today. Please refer to other consultation notes for further HPI. Patient does chronically straight cath outpatient and will continue to do so. Encouraged outpatient follow-up with urology as scheduled. Currently no reports of chest pain, no worsening shortness of breath, or palpitations. Patient is afebrile. No reports of nausea or vomiting and patient is tolerating diet. Patient will be discharged home today. Guarded prognosis and high risk for readmission given patient's comorbidities and acute infection. Physical exam: Gen: This is a 73-year-old male who is awake, alert oriented x 3, well- developed, thin built, elderly appearing HEENT: Head is atraumatic, normocephalic. Pupils equal, round. Sclerae is anicteric. NECK: Supple. No JVD. No lymphadenopathy. No thyromegaly. LUNGS: Diminished breath sounds bilaterally otherwise clear to auscultation. No wheezes or rhonchi. No intercostal retractions. HEART: S1, S2 are muffled ABDOMEN: Soft. Thin bowel sounds are present. No masses. No tenderness. EXTREMITIES: No pedal edema. No calf tenderness. NEUROLOGICAL: Patient is awake, alert and oriented x3. Cranial nerves 2 through 12 are grossly intact. Please refer to medication reconciliation sheet for a list of medications. The impression and plan of care has been dictated by Princess Servin, Nurse Practitioner as directed. Dr. Rachel MD I have performed a history and examination and MDM of this patient, discussed the same with the dictator, and agree with the dictator's assessment and plan as written ,documented as a scribe. Based on total visit time, I have performed more than 50% of the visit. Patient Condition at Discharge: Fair Plan - Discharge Summary Discharge Rx Participant: Yes New Discharge Prescriptions: New cefUROXime axetiL [Ceftin] 500 mg PO BID 5 Days #10 tab Oseltamivir [Tamiflu] 30 mg PO Q12HR 4 Days #8 cap Continue Venlafaxine HCl ER [Effexor XR] 150 mg PO HS Levothyroxine Sodium [Synthroid] 50 mcg PO DAILY Venlafaxine HCl ER [Effexor XR] 75 mg PO DAILY Simvastatin [Zocor] 10 mg PO HS Escitalopram [Lexapro] 20 mg PO DAILY Lidocaine 4% Cream [Lmx 4] 1 applic TOPICAL DAILY PRN PRN Reason: Pain NIFEdipine XL [Procardia XL] 60 mg PO DAILY Capsaicin Cream [Trixaicin Cream] 1 applic TOPICAL DAILY PRN PRN Reason: Pain LORazepam 0.5 mg PO TID Discharge Medication List Levothyroxine Sodium [Synthroid] 50 mcg PO DAILY 04/21/18 [History] Venlafaxine HCl ER [Effexor XR] 150 mg PO HS 04/21/18 [History] Capsaicin Cream [Trixaicin Cream] 1 applic TOPICAL DAILY PRN 12/30/23 [History] Escitalopram [Lexapro] 20 mg PO DAILY 12/30/23 [History] LORazepam 0.5 mg PO TID 12/30/23 [History] Lidocaine 4% Cream [Lmx 4] 1 applic TOPICAL DAILY PRN 12/30/23 [History] NIFEdipine XL [Procardia XL] 60 mg PO DAILY 12/30/23 [History] Simvastatin [Zocor] 10 mg PO HS 12/30/23 [History] Venlafaxine HCl ER [Effexor XR] 75 mg PO DAILY 12/30/23 [History] Oseltamivir [Tamiflu] 30 mg PO Q12HR 4 Days #8 cap 12/31/23 [Rx] cefUROXime axetiL [Ceftin] 500 mg PO BID 5 Days #10 tab 12/31/23 [Rx] Follow up Appointment(s)/Referral(s): Will Villanueva MD [Primary Care Provider] - 1-2 days Jaskaran Linares DO [Doctor of Osteopathic Medicine] - 1 Week Patient Instructions/Handouts: Influenza (DC) Activity/Diet/Wound Care/Special Instructions: Activity limited until follow-up Follow-up with primary care provider on discharge Follow-up with pulmonary outpatient Continue taking medications as prescribed Encourage fluids and rest and monitor for fevers Use Tylenol for pain, generalized bodyaches, and/or fevers Discharge Disposition: HOME SELF-CARE
== END 2023-12-31 16:28 | disposition home or self-care (01) | DRG 871 ==
LOC: EC 07:56 → OBSVTOIN 12:37 → 4SSUR 12:37
PROVIDERS: ADMIT Internal Medicine; ATTEND Internal Medicine
DX: A41.89 Other specified sepsis (principal); J10.00 Influenza due to other identified influenza virus with unspecified type of pneumonia; J15.9 Unspecified bacterial pneumonia; J44.0 Chronic obstructive pulmonary disease with (acute) lower respiratory infection; N17.9 Acute kidney failure, unspecified; E03.9 Hypothyroidism, unspecified; N40.0 Benign prostatic hyperplasia without lower urinary tract symptoms; E86.0 Dehydration; Z79.890 Hormone replacement therapy; Z79.899 Other long term (current) drug therapy; Z87.891 Personal history of nicotine dependence; Z11.52 Encounter for screening for COVID-19; Z28.21 Immunization not carried out because of patient refusal; L30.9 Dermatitis, unspecified; F41.9 Anxiety disorder, unspecified; I10 Essential (primary) hypertension; R09.02 Hypoxemia
CPT/HCPCS: 36415; 51701; 71046; 80048; 80053; 81001; 83605; 84145; 84484; 85025; 85379; 86140; 87040; 87449; 87636; 93005; 96361; 96365; 96366; 96375; 99285